=== PATIENT | male | born 1980 | race African-American/Black ===

== ENCOUNTER 2016-09-23 16:05 | Emergency (ER) | payer SELFPAY ==
--- NOTE | ~2016-09-23 | ER ---
PATIENT'S NAME: THIERNO HERNDON [facility] AGE: 36 Y [address] ROOM: [place] [address] LOCATION: [facility] ADMIT DATE: 09/23/2016 ER/Outpatient Report DISCHARGE DATE: 09/23/2016 FAMILY PHYSICIAN: PHYSICIAN, NO ATTENDING PHYSICIAN: Olga Lidia Brewster Time of Evaluation: 1620 hours. CHIEF COMPLAINT: Left biceps pain. HISTORY OF PRESENT ILLNESS: The patient is a 36-year-old male, who Tomas was lifting a heavy load of dry wall when he developed pain in his left biceps. The patient again today when he was trying to lift also began having pain. ALLERGIES: NO MEDICINAL ALLERGIES. HOME MEDICATIONS: None. MEDICAL HISTORY: He has no chronic diseases. SOCIAL HISTORY: Smoker half pack a day. No alcohol. REVIEW OF SYSTEMS: GENERAL: General health considered good. HEENT: No recent headaches, blurred vision, or sore throat. RESPIRATORY: No shortness of breath. CARDIOVASCULAR: No chest pain. His blood pressure here was elevated. MUSCULOSKELETAL: Included left biceps pain NEURO: No numbness or tingling to his arms. OBJECTIVE FINDINGS: VITAL SIGNS: Vital signs reviewed. His blood pressure was 174/112. GENERAL APPEARANCE: A black male, appeared somewhat anxious. LUNGS: Sounded clear. HEART: Appeared regular. EXTREMITIES: His left arm, some tenderness in the lateral biceps area, but there was no evidence of any rupture. There was no significant swelling. The patient had good radial pulse on his left arm. PATIENT'S NAME: THIERNO HERNDON [facility] AGE: 36 Y [address] ROOM: [place] [address] LOCATION: [facility] ADMIT DATE: 09/23/2016 ER/Outpatient Report DISCHARGE DATE: 09/23/2016 FAMILY PHYSICIAN: PHYSICIAN, ESEQUIEL ATTENDING PHYSICIAN: Olga Lidia Brewster ASSESSMENT: 1. Left biceps strain as a result of heavy lifting. 2. Elevated blood pressure. PLAN: Recommended ibuprofen 600 three times a day for 5 days. No heavy lifting. Ice or heat to the muscle. The patient also was advised to have his blood pressure rechecked daily for a week. If it remains above 150/90, that he should contact his medical provider. The patient verbalized understanding of his findings and agreed. The patient was given a note for work for the next 3 days. AMELIA BROWN FOR MD GAUTAM OSCAR/modl /[id number] d: 09/23/16 2327 t: 10/05/16 1204, OUTPATIENT REPORT
--- NOTE | ~2016-09-23 | ER ---
PATIENT'S NAME: THIERNO HERNDON [facility] AGE: 36 Y [address] ROOM: [place] [address] LOCATION: [facility] ADMIT DATE: 09/23/2016 ER/Outpatient Report DISCHARGE DATE: 09/23/2016 FAMILY PHYSICIAN: PHYSICIAN, NO ATTENDING PHYSICIAN: Olga Lidia Brewster Time of Evaluation: 1620 hours. CHIEF COMPLAINT: Left biceps pain. HISTORY OF PRESENT ILLNESS: The patient is a 36-year-old male, who Tomas was lifting a heavy load of dry wall when he developed pain in his left biceps. The patient again today when he was trying to lift also began having pain. ALLERGIES: NO MEDICINAL ALLERGIES. HOME MEDICATIONS: None. MEDICAL HISTORY: He has no chronic diseases. SOCIAL HISTORY: Smoker half pack a day. No alcohol. REVIEW OF SYSTEMS: GENERAL: General health considered good. HEENT: No recent headaches, blurred vision, or sore throat. RESPIRATORY: No shortness of breath. CARDIOVASCULAR: No chest pain. His blood pressure here was elevated. MUSCULOSKELETAL: Included left biceps pain NEURO: No numbness or tingling to his arms. OBJECTIVE FINDINGS: VITAL SIGNS: Vital signs reviewed. His blood pressure was 174/112. GENERAL APPEARANCE: A black male, appeared somewhat anxious. LUNGS: Sounded clear. HEART: Appeared regular. EXTREMITIES: His left arm, some tenderness in the lateral biceps area, but there was no evidence of any rupture. There was no significant swelling. The patient had good radial pulse on his left arm. PATIENT'S NAME: THIERNO HERNDON [facility] AGE: 36 Y [address] ROOM: [place] [address] LOCATION: [facility] ADMIT DATE: 09/23/2016 ER/Outpatient Report DISCHARGE DATE: 09/23/2016 FAMILY PHYSICIAN: PHYSICIAN, ESEQUIEL ATTENDING PHYSICIAN: Olga Lidia Brewster ASSESSMENT: 1. Left biceps strain as a result of heavy lifting. 2. Elevated blood pressure. PLAN: Recommended ibuprofen 600 three times a day for 5 days. No heavy lifting. Ice or heat to the muscle. The patient also was advised to have his blood pressure rechecked daily for a week. If it remains above 150/90, that he should contact his medical provider. The patient verbalized understanding of his findings and agreed. The patient was given a note for work for the next 3 days. AMELIA BROWN FOR MD GAUTAM OSCAR/modl /[id number] d: t: 09/23/16 2342, OUTPATIENT REPORT
== END 2016-09-23 16:30 | disposition disaster alternative care site (69) ==
LOC: GACC 16:05
DX: S46.212A Strain of muscle, fascia and tendon of other parts of biceps, left arm, initial encounter (principal); I10 Essential (primary) hypertension; X50.0XXA Overexertion from strenuous movement or load, initial encounter